=== PATIENT | female | born 1970 | race Caucasian/White ===

== ENCOUNTER 2019-11-04 06:10 | Day surgery (SDC) | payer OTHER | END 2019-11-04 12:15 | disposition home or self-care (01) | LOC: AMB-ENDOS 06:10 → ADM 15:00 → AMB-ENDOS 15:00 | PROVIDERS: ATTEND Surgery | DX: D13.1 Benign neoplasm of stomach (principal); Z20.828 Contact with and (suspected) exposure to other viral communicable diseases ==